=== PATIENT | female | born 1945 | race Caucasian/White ===

== ENCOUNTER 2016-10-11 17:29 | Inpatient (IN) | payer MEDICARE, MEDICAID ==
[~2016-10-11] VITALS: Ht 165.1 cm; Wt 88.5 kg
[2016-10-11] MEDS ORDERED: SODIUM CHLORIDE 0.9% 1,000 ML IV SCH (18:06)
[2016-10-11] MEDS ORDERED: ACETAMINOPHEN 325 MG TABLET PO PRN (18:30)
[2016-10-11] MEDS ORDERED: PLEASE ENTER ALLERGIES MC SCH ×2 (18:30)
[2016-10-11] MEDS ORDERED: PLEASE ENTER HEIGHT AND WEIGHT MC SCH (18:30)
[2016-10-11] MEDS ORDERED: NITROGLYCERIN 0.4 MG BOTTLE (25 TABS) SL PRN (18:30)
[2016-10-11] MEDS ORDERED: ZOLPIDEM 5MG TABLET PO PRN (18:30)
[2016-10-11] MEDS ORDERED: ASPIRIN 325 MG TABLET EC PO ONE (18:30)
[2016-10-11 19:00] LABS: BLOOD UREA NITROGEN 16 mg/dL (7-18)
[2016-10-11 19:09] LABS: ASPARTATE AMINO TRANSFERASE 14 U/L (15-37)
[2016-10-11 19:20] VITALS: BP 127/70
[2016-10-11] MEDS: ATORVASTATIN 40 MG TABLET PO SCH (19:34)
[2016-10-11] MEDS ORDERED: GLUC-111 PO (20:35)
[2016-10-11] MEDS ORDERED: ISOS60TA36 PO (20:35)
[2016-10-11] MEDS ORDERED: GLIP10TA13 PO (20:35)
[2016-10-11] MEDS ORDERED: METF500T4 PO (20:35)
[2016-10-11] MEDS ORDERED: AMLO5TAB2 PO (20:35)
[2016-10-11] MEDS ORDERED: OMEG-120 PO (20:35)
[2016-10-11] MEDS ORDERED: ASPI-770 PO (20:35)
[2016-10-11] MEDS ORDERED: VALS1TAB30 PO (20:35)
[2016-10-11] MEDS ORDERED: CARV10CP PO (20:35)
[2016-10-11] MEDS ORDERED: ATOR40TA78 PO (20:35)
[2016-10-11] MEDS ORDERED: DOCU100C8 PO (20:35)
[2016-10-11] MEDS ORDERED: SPIR25TA3 PO (20:35)
[2016-10-11] MEDS ORDERED: NITR0.3T5 SL (20:35)
[2016-10-12 00:15] VITALS: BP 124/74
[2016-10-12 05:16] VITALS: BP 138/84
[2016-10-12] MEDS: CARVEDILOL 6.25 MG TABLET PO SCH ×2 (05:19→18:16)
[2016-10-12 07:19] VITALS: BP 146/77
[2016-10-12] MEDS ORDERED: BIVALIRUDIN 250 MG ONE (07:40)
[2016-10-12] MEDS ORDERED: LIDOCAINE 2%, 20ML ONE (07:40)
[2016-10-12] MEDS ORDERED: MIDAZOLAM 1 MG/ML, 5ML ONE (07:40)
[2016-10-12] MEDS ORDERED: FENTANYL PF 100 MCG/2ML ONE (07:40)
[2016-10-12] MEDS ORDERED: HEPARIN 1,000 UNITS/ML, 10ML ONE (07:40)
[2016-10-12] MEDS ORDERED: VERAPAMIL 2.5 MG/ML, 2ML ONE (07:40)
[2016-10-12] MEDS ORDERED: TICAGRELOR 90 MG TABLET ONE ×2 (07:40→09:27)
[2016-10-12] MEDS: CLOPIDOGREL 75 MG TABLET PO SCH (09:26)
[2016-10-12] MEDS: AMLODIPINE 5 MG TABLET PO SCH (09:26)
[2016-10-12] MEDS: PREGABALIN 200 MG CAPSULE PO SCH (09:26)
[2016-10-12] MEDS: SPIRONOLACTONE 25 MG TABLET PO SCH (09:26)
[2016-10-12] MEDS: VALSARTAN 320 MG TABLET PO SCH (09:27)
[2016-10-12] MEDS: ISOSORBIDE MONONITRATE ER 60 MG TABLET PO SCH (09:27)
[2016-10-12] MEDS: SODIUM CHLORIDE 0.9% 1,000 ML IV SCH ×2 (09:31→17:09)
[2016-10-12 14:02] VITALS: BP 126/74
[2016-10-12 19:12] VITALS: BP 118/74
[2016-10-12] MEDS: ATORVASTATIN 40 MG TABLET PO SCH (20:46)
[2016-10-13] MEDS: SODIUM CHLORIDE 0.9% 1,000 ML IV SCH ×2 (01:31→08:23)
[2016-10-13 02:00] VITALS: BP 122/72
[2016-10-13] MEDS: CARVEDILOL 6.25 MG TABLET PO SCH (06:19)
[2016-10-13 07:16] VITALS: BP 140/82
[2016-10-13] MEDS: SPIRONOLACTONE 25 MG TABLET PO SCH (08:22)
[2016-10-13] MEDS: ISOSORBIDE MONONITRATE ER 60 MG TABLET PO SCH (08:22)
[2016-10-13] MEDS: VALSARTAN 320 MG TABLET PO SCH (08:22)
[2016-10-13] MEDS: CLOPIDOGREL 75 MG TABLET PO SCH (08:23)
[2016-10-13] MEDS: AMLODIPINE 5 MG TABLET PO SCH (08:23)
[2016-10-13] MEDS: PREGABALIN 200 MG CAPSULE PO SCH (08:23)
[2016-10-13] MEDS ORDERED: ASPIRIN 81 MG TABLET EC PO SCH (09:00)
[2016-10-13] MEDS ORDERED: CLOP75TA PO (11:12)
[2016-10-13] MEDS ORDERED: ISOS60TA36 PO (11:21)
== END 2016-10-13 15:53 | disposition home or self-care (01) | DRG 251 ==
LOC: 5SO 17:29
PROVIDERS: ADMIT Internal Medicine Cardiovascular Disease; ATTEND Internal Medicine Cardiovascular Disease
PROC: 4A023N7 Measurement of Cardiac Sampling and Pressure, Left Heart, Percutaneous Approach (ICD-10-PCS; principal; 2016-10-12)
PROC: 02703ZZ Dilation of Coronary Artery, One Artery, Percutaneous Approach (ICD-10-PCS; 2016-10-12)
PROC: B2111ZZ Fluoroscopy of Multiple Coronary Arteries using Low Osmolar Contrast (ICD-10-PCS; 2016-10-12)
PROC: B2151ZZ Fluoroscopy of Left Heart using Low Osmolar Contrast (ICD-10-PCS; 2016-10-12)
DX: I25.110 Atherosclerotic heart disease of native coronary artery with unstable angina pectoris (principal); I10 Essential (primary) hypertension; E11.9 Type 2 diabetes mellitus without complications; E78.5 Hyperlipidemia, unspecified; E11.42 Type 2 diabetes mellitus with diabetic polyneuropathy; Z88.8 Allergy status to other drugs, medicaments and biological substances
CPT/HCPCS: 36415; 80053; 85025; 92920; 93005; 93458; 99156; 99157; C1769; C1894; J0583; J1644; J2250; J3010; J3490; 92928; C1725; C1887; J7030; Q9967